=== PATIENT | male | born 1945 | race Caucasian/White ===

== ENCOUNTER 2017-08-25 09:39 | Inpatient (IN) | payer MEDICARE, OTHER ==
[~2017-08-25] VITALS: Ht 185.4 cm; Wt 95.4 kg
[~2017-08-25 09:39] MED LIST: ALB0.5UD IH; AMIT10TA6 PO; AMLO10TA PO; DOCU-28 PO; HYDR-565 PO; HYDR-569 PO; MAGN296S50 PO; METO-384 PO; SAW450CA7 PO; SIMV20TA PO; TAMS0.4C32 PO
[2017-08-25 10:40] LABS: BASOPHILS % (AUTO) 0.5 % (0-1); EOSINOPHILS # (AUTO) 0.3 X10'3 (0-0.9); EOSINOPHILS % (AUTO) 3.1 % (0-6); HEMATOCRIT 49.8 % (42.0-52.0); HEMOGLOBIN 17.1 g/dl (14.0-17.9); LYMPHOCYTES % (AUTO) 20.2 % (21-51); MEAN CORPUSCULAR HEMOGLOBIN 31.9 PG (27.0-31.0); MEAN CORPUSCULAR HGB CONC 34.3 % (33.0-36.5); MEAN CORPUSCULAR VOLUME 93.1 FL (78-98); MEAN PLATELET VOLUME 7.7 FL (7.4-10.4); MONOCYTES # (AUTO) 0.6 X10'3 (0-0.9); MONOCYTES % (AUTO) 5.8 % (2-12); NEUTROPHILS # (AUTO) 6.8 X10'3 (1.8-7.7); NEUTROPHILS % (AUTO) 70.4 % (42-75); PLATELET COUNT 250 X10'3 (140-440); RED BLOOD COUNT 5.35 X10'6 (4.70-6.10); RED CELL DISTRIBUTION WIDTH 13.5 % (11.5-14.5); WHITE BLOOD COUNT 9.7 X10'3 (4.5-11.0)
[2017-08-25 10:52] LABS: ALANINE AMINOTRANSFERASE 18 U/L (12-78); ALBUMIN 3.8 G/DL (3.4-5.0); ALKALINE PHOSPHATASE 98 IU/L (46-116); ANION GAP 4 (8-16); ASPARTATE AMINO TRANSFERASE 11 U/L (10-37); BILIRUBIN,TOTAL 0.6 MG/DL (0.1-1.0); BLOOD UREA NITROGEN 14 MG/DL (7-18); CALCIUM 9.1 MG/DL (8.5-10.1); CHLORIDE 99 MMOL/L (99-107); GLUCOSE 99 MG/DL (70-104); POTASSIUM 4.2 MMOL/L (3.5-5.1); SODIUM 136 MMOL/L (135-145); TOTAL CARBON DIOXIDE 32.8 MMOL/L (24-32); TOTAL PROTEIN 7.5 G/DL (6.4-8.2); eGFR 73 ML/MIN
[2017-08-25] MEDS ORDERED: levoFLOXACIN-Levaquin 750MG/D5 150 ML IV ONE (12:00)
[2017-08-25] MEDS ORDERED: methylPREDNISolone sod succ 125mg/2ml vial IV ONE (12:00)
[2017-08-25] MEDS ORDERED: CefTRIAXone 2gm/NS 100ml IVPB 100 ML IV ONE (12:00)
[2017-08-25] MEDS ORDERED: albuterol 2.5 MG/3 ML nebule NEB ONE (12:00)
[2017-08-25 12:40] LABS: ABG BASE EXCESS 5.1 mmol/L (-2.0-3.0); ABG HCO3 34.3 mmol/L (22.0-26.0); ABG OXYGEN SATURATION 92.5 % (95-98); ABG PH (T) 7.314 (7.350-7.450); ABG PO2 (T) 61.8 mmHg (83-108); ALLEN'S TEST Positive; FCOHb 4.8 % (0.5-1.5); FLOW 3 L/min; FMetHb 0.2 % (0.3-1.12); FO2Hb 87.9 % (94-100); TOTAL HEMOGLOBIN 17.2 G/dl (14.0-18.0)
[2017-08-25] MEDS ORDERED: pneumococcal 23-VAL P-sac vacc 25 mcg/0.5ml vial IMVAC ONE (13:25)
[2017-08-25] MEDS ORDERED: albuterol 2.5 MG/3 ML nebule NEB PRN (14:00)
[2017-08-25] MEDS ORDERED: mag hydrox/Alum hydrox/simeth 30ml oral suspension PO PRN (14:05)
[2017-08-25] MEDS ORDERED: acetaminophen 325mg tablet PO PRN ×2 (14:05)
[2017-08-25] MEDS ORDERED: magnesium hydroxide 30ml (MOM) UD suspension PO PRN (14:05)
[2017-08-25] MEDS ORDERED: ondansetron/PF 4mg/2ml inj IV PRN (14:05)
[2017-08-25] MEDS ORDERED: HYDROcodone/acetaminophen 5mg/325mg tablet PO PRN (14:05)
[2017-08-25 17:00] VITALS: BP 156/89
[2017-08-25 20:00] VITALS: BP 158/77
[2017-08-25] MEDS: nicotine 21mg patch - 24 hr TD SCH (20:00)
[2017-08-25] MEDS: methylPREDNISolone sod succ/PF 40mg inj. IV SCH (20:02)
[2017-08-25] MEDS ORDERED: atorvastatin 10mg tablet PO SCH (21:00)
[2017-08-25] MEDS ORDERED: amitriptyline 10mg tablet PO SCH (21:00)
[2017-08-26] VITALS: BP 149/79
[2017-08-26] MEDS: methylPREDNISolone sod succ/PF 40mg inj. IV SCH ×2 (04:16→08:55)
[2017-08-26 06:06] LABS: BASOPHILS % (AUTO) 0.1 % (0-1); EOSINOPHILS % (AUTO) 0.7 % (0-6); HEMATOCRIT 47.2 % (42.0-52.0); HEMOGLOBIN 16.2 g/dl (14.0-17.9); LYMPHOCYTES # (AUTO) 0.9 X10'3 (1.1-4.8); MEAN CORPUSCULAR HGB CONC 34.3 % (33.0-36.5); MEAN CORPUSCULAR VOLUME 93.2 FL (78-98); MEAN PLATELET VOLUME 7.5 FL (7.4-10.4); MONOCYTES # (AUTO) 0.3 X10'3 (0-0.9); MONOCYTES % (AUTO) 4.3 % (2-12); NEUTROPHILS % (AUTO) 80.9 % (42-75); PLATELET COUNT 237 X10'3 (140-440); RED BLOOD COUNT 5.06 X10'6 (4.70-6.10); RED CELL DISTRIBUTION WIDTH 13.3 % (11.5-14.5); WHITE BLOOD COUNT 6.1 X10'3 (4.5-11.0)
[2017-08-26 06:57] LABS: ALANINE AMINOTRANSFERASE 17 U/L (12-78); ALBUMIN 3.4 G/DL (3.4-5.0); ALKALINE PHOSPHATASE 91 IU/L (46-116); ANION GAP 7 (8-16); ASPARTATE AMINO TRANSFERASE 8 U/L (10-37); BILIRUBIN,TOTAL 0.2 MG/DL (0.1-1.0); BLOOD UREA NITROGEN 18 MG/DL (7-18); CALCIUM 9.4 MG/DL (8.5-10.1); CHLORIDE 100 MMOL/L (99-107); CHOL/HDL RATIO 2.1 (0.00-4.99); CHOLESTEROL 135 MG/DL (0-200); GLUCOSE 163 MG/DL (70-104); HDL CHOLESTEROL 64 MG/DL (35-60); LDL CHOLESTEROL 59 MG/DL (50-100); POTASSIUM 4.7 MMOL/L (3.5-5.1); SODIUM 138 MMOL/L (135-145); TOTAL CARBON DIOXIDE 30.8 MMOL/L (24-32); TOTAL PROTEIN 6.9 G/DL (6.4-8.2); TRIGLYCERIDES 92 MG/DL (20-135); eGFR 73 ML/MIN
[2017-08-26 07:30] VITALS: BP 174/97
[2017-08-26] MEDS ORDERED: amLODIPine 5mg tablet PO SCH (08:00)
[2017-08-26] MEDS ORDERED: levoFLOXACIN-Levaquin 500mg/D5 100 ML IV SCH (08:00)
[2017-08-26] MEDS: nicotine 21mg patch - 24 hr TD SCH (08:55)
[2017-08-26 11:00] VITALS: BP 157/88
[2017-08-26] MEDS ORDERED: LEVO500T89 PO (13:35)
[2017-08-26] MEDS ORDERED: PRED20TA PO (13:35)
== END 2017-08-26 13:55 | disposition home or self-care (01) | DRG 193 ==
LOC: ER 09:39 → ED HOLD 14:01 → MED 3N 17:31
PROVIDERS: ADMIT Internal Medicine; ATTEND Internal Medicine
DX: J18.9 Pneumonia, unspecified organism (principal); J96.01 Acute respiratory failure with hypoxia; J44.1 Chronic obstructive pulmonary disease with (acute) exacerbation; J44.0 Chronic obstructive pulmonary disease with (acute) lower respiratory infection; E78.5 Hyperlipidemia, unspecified; G47.33 Obstructive sleep apnea (adult) (pediatric); I10 Essential (primary) hypertension; K21.9 Gastro-esophageal reflux disease without esophagitis; Z72.0 Tobacco use; Z90.49 Acquired absence of other specified parts of digestive tract; Z88.8 Allergy status to other drugs, medicaments and biological substances; Z23 Encounter for immunization
CPT/HCPCS: 36415; 36600; 71045; 71046; 80053; 80061; 82803; 83036; 85018; 85025; 87040; 87070; 87502; 87503; 90732; 93005; 93306; 94640; 94760; 96365; 96368; 96375; 99291; J0696; J1956; J2920; J2930; J7030

== ENCOUNTER → 2018-06-23 | Outpatient (CLI) | payer MEDICARE, OTHER ==
[~2018-06-23] VITALS: Ht 185.4 cm; Wt 99.8 kg
[~2018-06-23] MED LIST changes: -DOCU-28 PO; -HYDR-565 PO; -HYDR-569 PO; -MAGN296S50 PO; -SAW450CA7 PO; -TAMS0.4C32 PO; +albuterol 2.5 MG/3 ML nebule NEB ONE
== END | disposition home or self-care (01) ==
LOC: RT 12:31
PROVIDERS: ATTEND Family Medicine
DX: J44.9 Chronic obstructive pulmonary disease, unspecified (principal); F17.210 Nicotine dependence, cigarettes, uncomplicated; I10 Essential (primary) hypertension; Z20.1 Contact with and (suspected) exposure to tuberculosis; Z79.899 Other long term (current) drug therapy
CPT/HCPCS: 71046

== ENCOUNTER 2020-02-06 10:57 | Inpatient (IN) | payer MEDICARE ==
[~2020-02-06] VITALS: Ht 182.9 cm; Wt 102.0 kg
[~2020-02-06 10:57] MED LIST changes: -albuterol 2.5 MG/3 ML nebule NEB ONE
--- NOTE | 2020-02-06 11:15 | NUR ---
pt admits to drinking black velvet whiskey, one cocktail a day.
[2020-02-06] MEDS ORDERED: predniSONE 20 mg tablet PO ONE (11:25)
[2020-02-06] MEDS ORDERED: ipratropium/albuterol 3ml nebule NEB ONE (11:25)
[2020-02-06 11:57] LABS: BASOPHILS # (AUTO) 0.1 X10'3 (0-0.2); BASOPHILS % (AUTO) 0.4 % (0-1); EOSINOPHILS # (AUTO) 0.1 X10'3 (0-0.9); EOSINOPHILS % (AUTO) 0.7 % (0-6); HEMOGLOBIN 14.5 g/dl (14.0-17.9); LYMPHOCYTES # (AUTO) 0.6 X10'3 (1.1-4.8); LYMPHOCYTES % (AUTO) 4.4 % (21-51); MEAN CORPUSCULAR HEMOGLOBIN 31.8 PG (27.0-31.0); MEAN CORPUSCULAR HGB CONC 33.1 g/dL (33.0-36.5); MEAN CORPUSCULAR VOLUME 96.1 FL (78-98); MEAN PLATELET VOLUME 7.4 FL (7.4-10.4); MONOCYTES # (AUTO) 0.6 X10'3 (0-0.9); MONOCYTES % (AUTO) 4.1 % (2-12); NEUTROPHILS # (AUTO) 13.2 X10'3 (1.8-7.7); NEUTROPHILS % (AUTO) 90.4 % (42-75); PLATELET COUNT 214 X10'3 (140-440); RED BLOOD COUNT 4.58 X10'6 (4.70-6.10); RED CELL DISTRIBUTION WIDTH 15.1 % (11.5-14.5); WHITE BLOOD COUNT 14.6 X10'3 (4.5-11.0)
[2020-02-06 12:09] LABS: PARTIAL THROMBOPLASTIN TIME 27 SECONDS (22-32)
--- NOTE | 2020-02-06 12:18 | NUR ---
Asked pt to put his mask back on after taking the prednisone. Pt states, "I don't want to put it back on, you are not the boss, I am".
[2020-02-06 12:26] LABS: ALANINE AMINOTRANSFERASE 56 U/L (12-78); ALBUMIN 2.5 G/DL (3.4-5.0); ALBUMIN/GLOBULIN RATIO 0.7 (1.1-1.5); ALKALINE PHOSPHATASE 107 IU/L (46-116); ANION GAP 2 (8-16); ASPARTATE AMINO TRANSFERASE 24 U/L (10-37); BILIRUBIN,TOTAL 0.3 MG/DL (0.1-1.0); BLOOD UREA NITROGEN 19 MG/DL (7-18); BUN/CREATININE RATIO 21.6 (5.4-32.0); CALCIUM 8.9 MG/DL (8.5-10.1); CHLORIDE 103 MMOL/L (99-107); CREATININE 0.88 MG/DL (0.60-1.10); GLUCOSE 196 MG/DL (70-104); LIPASE 79 U/L (73-393); SODIUM 144 MMOL/L (135-145); TOTAL CARBON DIOXIDE 39.2 MMOL/L (24-32); TOTAL PROTEIN 6.2 G/DL (6.4-8.2); eGFR 84 ML/MIN
[2020-02-06 12:28] LABS: POTASSIUM 2.9 MMOL/L (3.5-5.1)
[2020-02-06] MEDS ORDERED: azithromycin/NS 500mg/250ml 250 ML IV STA (12:28)
[2020-02-06] MEDS ORDERED: CefTRIAXone/D5W-Rocephin 1gm 50 ML IV STA (12:28)
[2020-02-06] MEDS ORDERED: potassium Cl 20 mEq SR tablet PO ONE (12:30)
[2020-02-06] MEDS ORDERED: potassium Cl 10 mEq/100mL bag IV ONE (12:30)
[2020-02-06] MEDS ORDERED: SERT50TA10 PO (12:59)
[2020-02-06] MEDS ORDERED: HYDR-4069 PO (12:59)
[2020-02-06] MEDS ORDERED: FLUT16SP26 NAS (12:59)
[2020-02-06] MEDS ORDERED: FLO0.4C PO (12:59)
[2020-02-06] MEDS ORDERED: METO50TA17 PO (12:59)
[2020-02-06] MEDS ORDERED: normal saline 1000ml 1,000 ML IV SCH (13:46)
[2020-02-06] MEDS ORDERED: magnesium 4gm in 100ml NS 100 ML IV PRN (13:50)
[2020-02-06] MEDS ORDERED: HYDROcodone/acetaminophen 10/325mg tab PO PRN (13:50)
[2020-02-06] MEDS ORDERED: acetaminophen 325mg tablet PO PRN ×2 (13:50)
[2020-02-06] MEDS ORDERED: mag hydrox/Alum hydrox/simeth 30ml oral suspension PO PRN (13:50)
[2020-02-06] MEDS ORDERED: ondansetron/PF 4mg/2ml inj IV PRN (13:50)
[2020-02-06] MEDS ORDERED: potassium Cl 20 mEq SR tablet PO PRN ×2 (13:50)
[2020-02-06] MEDS ORDERED: HYDROcodone/acetaminophen 5mg/325mg tablet PO PRN (13:50)
[2020-02-06] MEDS ORDERED: magnesium Cl slow-release 64mg tablet PO PRN (13:50)
[2020-02-06] MEDS ORDERED: potassium CL 10mEq/100ml bag 100 ML IV PRN ×2 (13:50)
[2020-02-06] MEDS ORDERED: magnesium hydroxide 30ml (MOM) UD suspension PO PRN (13:50)
[2020-02-06] MEDS ORDERED: magnesium 2GM in 50ml NS 50 ML IV PRN (13:50)
[2020-02-06 14:10] LABS: CLARITY,URINE CLEAR (Clear); COLOR,URINE STRAW (Yellow); GLUCOSE, URINE NEGATIVE (Neg); KETONES,URINE NEGATIVE (Neg); LEUKOCYTE ESTERASE ,URINE NEGATIVE (Neg); NITRITES, URINE NEGATIVE (Neg); OCCULT BLOOD,URINE NEGATIVE (Neg); PH,URINE 6.5 (4.8-8.0); PROTEIN,URINE TRACE mg/dl (Neg)
[2020-02-06 14:13] LABS: UA COLLECTION TYPE NON-SPECIFIED
[2020-02-06 14:15] LABS: MAGNESIUM 2.1 MG/DL (1.5-2.4); PHOSPHORUS 2.9 MG/DL (2.3-4.5)
[2020-02-06] MEDS ORDERED: iohexol 300mg/ml 100ml inj. ONE (14:26)
[2020-02-06 14:27] LABS: MUCUS STRANDS NONE SEEN /LPF (Neg); SQUAMOUS EPITHELIAL CELL,UR FEW /LPF (FEW)
[2020-02-06 14:28] LABS: BACTERIA,URINE NONE SEEN /HPF (Neg); RBC,URINE 0-2 /HPF (0-2); WBC,URINE 0-4 /HPF (0-4)
[2020-02-06 15:00] VITALS: BP 109/79
--- NOTE | 2020-02-06 15:27 | NUR ---
RECEIVED TELEPHONE REPORT FROM DAYSI CARLTON
[2020-02-06] MEDS ORDERED: metoprolol tartrate 50mg tablet PO SCH (17:30)
--- NOTE | 2020-02-06 18:40 | NUR ---
Problems reprioritized. Patient report given, questions answered & plan of care reviewed with DAYSI VALENTINE.
[2020-02-06 19:00] VITALS: BP 183/95
--- NOTE | 2020-02-06 19:00 | NUR ---
Patient in room PCU 3018B. I have received report from DAYSI LARSEN and had the opportunity to ask questions and assume patient care. PATIENT AWAKE FOR BEDSIDE REPORT, ON 3L NC, NS INFUSING AT 100 ML/HR PER PROVIDER ORDER. PATIENT OFFERS NO COMPLAINTS AT THIS TIME. WILL CONTINUE TO MONITOR CLOSELY.
--- NOTE | 2020-02-06 19:37 | NUR ---
PAGER ID: [phone] MESSAGE: EXT. [id number], DAYSI BOLIVAR FOR PATIENT IN 3018B ADMITTED 02/05 FOR [facility] PNA. CRITICAL K OF 3.0. WILL REPLACE PER PROTOCOL. THANK YOU!
--- NOTE | 2020-02-06 19:48 | NUR ---
PAGER ID: [phone] MESSAGE: EXT. [id number], DAYSI BOLIVAR FOR PATIENT IN 3018A. ADMIT Dx LLL PNA. PATIENT'S BP 183/95 HR 99 AT 1900. RECHECKED 194 AND BP 167/92 HR 96. NO BP MEDS DUE TONIGHT
[2020-02-06] MEDS ORDERED: K and/or MAG REPLACEMENT MC SCH (20:00)
[2020-02-06] MEDS ORDERED: hydrALAZINE 20mg/ml inj. IV PRN (20:10)
[2020-02-06] MEDS ORDERED: atorvastatin 10mg tablet PO SCH (21:00)
[2020-02-06] MEDS ORDERED: tamsulosin 0.4mg capsule PO SCH (21:00)
[2020-02-06] MEDS ORDERED: temazepam 15mg capsule PO PRN (21:00)
--- NOTE | 2020-02-06 21:45 | NUR ---
PATIENT WANTED TO LEAVE AMA DUE TO A DELAYED RESPONSE TIME IN HIS CALL LIGHT BEING ANSWERED. PRIMARY RN ON BREAK DURING PATIENT'S EPISODE. PER PCT, PATIENT WAS PANICKING BECAUSE HE DISLODGED THE NASAL CANNULA TUBING FROM O2 SUPPLY FROM WALL. PATIENT WAS ON 3L. UTILIZED THERAPEUTIC COMMUNICATION AND ATTEMPTED TO EDUCATE PATIENT ON PLAN OF CARE AND IMPORTANCE OF STAYING IN THE HOSPITAL. PATIENT STATED, "YOU GUYS DON'T CARE ABOUT ME. I ALMOST FLAT LINED. I CAN DO ALL THIS SHIT AT HOME." PATIENT BECAME INCREASINGLY UPSET AND VERBALLY ABUSIVE TO STAFF. PRIMARY RN LEFT ROOM AND RETRIEVED THE PAPER WORK AND STATED ONCE PATIENT DECIDED TO LEAVE AMA, WE CANNOT SUPPLY O2, BEING THAT IT IS A MEDICATION AND A WHEELCHAIR WILL ALSO BE VOID UPON EXITING THE FLOOR. REFUSED TO SIGN AMA PAPERWORK. RN REMOVED 18G LEFT FOREARM IV AND [employer]ER 36. PATIENT AMBULATED OFF FLOOR WITH CLOTHING AND WALLET.
[2020-02-07] MEDS ORDERED: sertraline 50mg tablet PO SCH (08:00)
[2020-02-07] MEDS ORDERED: CefTRIAXone/D5W-Rocephin 1gm 50 ML IV SCH (08:00)
[2020-02-07] MEDS ORDERED: predniSONE 20 mg tablet PO SCH (08:00)
[2020-02-07] MEDS ORDERED: enoxaparin 40mg/0.4ml syringe SQ SCH (08:00)
[2020-02-07] MEDS ORDERED: azithromycin/NS 500mg/250ml 250 ML IV SCH (08:00)
[2020-02-07] MEDS ORDERED: amLODIPine 5mg tablet PO SCH (08:00)
== END 2020-02-06 21:38 | disposition left against medical advice (07) | DRG 193 ==
LOC: ER 10:57 → ED HOLD 13:46 → PCU 3S 14:57 → EDBEDREQ 15:00
PROVIDERS: ADMIT Family Medicine; ATTEND Family Medicine
DX: J18.9 Pneumonia, unspecified organism (principal); J96.00 Acute respiratory failure, unspecified whether with hypoxia or hypercapnia; R04.2 Hemoptysis; E78.00 Pure hypercholesterolemia, unspecified; E78.5 Hyperlipidemia, unspecified; K44.9 Diaphragmatic hernia without obstruction or gangrene; Z53.29 Procedure and treatment not carried out because of patient's decision for other reasons; Z20.828 Contact with and (suspected) exposure to other viral communicable diseases; E87.6 Hypokalemia; F32.9 Major depressive disorder, single episode, unspecified; R14.0 Abdominal distension (gaseous); F17.210 Nicotine dependence, cigarettes, uncomplicated; I10 Essential (primary) hypertension; J43.9 Emphysema, unspecified; Z90.49 Acquired absence of other specified parts of digestive tract; Z99.81 Dependence on supplemental oxygen; Z88.8 Allergy status to other drugs, medicaments and biological substances; Z71.6 Tobacco abuse counseling
CPT/HCPCS: 36415; 71045; 71260; 80053; 81001; 83605; 83690; 83735; 83880; 84100; 84132; 84145; 84484; 85025; 85610; 85730; 87040; 87081; 87635; 93005; 94640; 94760; 96365; 96368; 99285; G0378; J0360; J0456; J0696; J3480; J7030; J7512; Q9967